=== PATIENT | male | born 1965 | race Caucasian/White ===

== ENCOUNTER 2018-11-24 17:16 | Inpatient (IN) | payer OTHER ==
[~2018-11-24] VITALS: Ht 182.9 cm; Wt 80.7 kg
--- NOTE | 2018-11-24 22:27 | NUR ---
REPORT RECEIVED FROM [facility].
--- NOTE | 2018-11-24 23:10 | NUR ---
RECEIVED PATIENT VIA GURNEY IN STABLE CONDITION. PATIENT AWAKE, A/O X4 AND ABLE TO PROVIDE HISTORY AND INFORMATION BY SELF. NO C/O PAIN OR DISCOMFORT. PERIPHERAL LINE INTACT AND PATENT. PATIENT NOTED WITH X1 MODERATE AMOUNT LIQUID BLACK STOOL. NOTED WITH UNSTEADY GAIT AND AMBULATES TO RESTROOM WITH MIN ASSIST. VITALS WNL. PATIENT SEEN AND EXAMINED BY YURI MACIAS. ALL MEDS GIVEN ORDERED. ENCOURAGED USE OF CALL LIGHT FOR ASSISTANCE. ROOM FREE OF CLUTTER AND BELONGINGS KEPT NEAR BEDSIDE.
[2018-11-25] MEDS ORDERED: Z GUARD REMEDY 2 OZ OINT TP PRN
[2018-11-25] MEDS ORDERED: ACETAMINOPHEN 325 MG TABLET PO PRN
[2018-11-25] MEDS ORDERED: MAGNESIUM HYDROXIDE 30 ML UDC PO PRN
[2018-11-25] MEDS ORDERED: ZOLPIDEM TARTRATE 5 MG TABLET PO PRN
[2018-11-25] MEDS ORDERED: HYDROCODONE/APAP 5/325MG 1 EACH TABLET PO PRN
[2018-11-25] MEDS: PANTOPRAZOLE 40 MG VIAL IV SCH ×2 (00:32→11:36)
[2018-11-25] MEDS: IV NS 0.9% 1,000 ML IV PRN ×2 (00:32→16:05)
[2018-11-25] MEDS: LORAZEPAM INJ 2 MG/ML VIAL IV PRN ×5 (00:32→21:21)
--- NOTE | 2018-11-25 07:27 | NUR ---
MS RN NOTES PATIENT ASLEEP IN BED WITH NO DISTRESS NOTED. CALL LIGHT WITHIN REACH. PERIPHERAL LINE INTACT AND PATENT. NO C/O PAIN OR DISCOMFORT. ALL BELONGINGS KEPT NEAR BEDSIDE. WILL ENDORSE TO ONCOMING SHIFT.
--- NOTE | 2018-11-25 07:30 | NUR ---
MS/RN Patient received Patient received from slot shift manager, A/O X4, Persian speaking only. Denies any pain or discomfort at this time. Vital signs in normal range, no fever. Patient instructed if using restroom for bowel movement to not flush the toilet so that stool could be observed for any signs of blood. All needs attended, call light within reach, will continue to monitor and ensure safety. 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
[2018-11-25 07:51] VITALS: BP 127/84
[2018-11-25 07:51] LABS: BASOPHILS % (AUTO) 0.7 % (0.0-2.0); EOSINOPHILS % (AUTO) 0.7 % (0.0-6.0); HEMATOCRIT 37 % (39-51); LYMPHOCYTES # (AUTO) 1.1 /CMM (0.8-4.8); LYMPHOCYTES % (AUTO) 22.3 % (20.0-44.0); MEAN CORPUSCULAR HGB CONC 35 g/dl (31.0-36.0); MEAN CORPUSCULAR VOLUME 91 fL (80-96); MONOCYTES # (AUTO) 0.3 /CMM (0.1-1.30); MONOCYTES % (AUTO) 6.8 % (2.0-12.0); NEUTROPHILS # (AUTO) 3.4 /CMM (1.8-8.9); NEUTROPHILS % (AUTO) 69.5 % (43.0-81.0); PLATELET COUNT (AUTO) 62 /CMM (150-450); RED BLOOD CELL COUNT(AUTO) 4.02 MIL/uL (4.5-6.0); WHITE BLOOD COUNT (AUTO) 4.9 K/uL (4.3-11.0)
[2018-11-25 08:00] VITALS: BP 127/84
[2018-11-25] MEDS: ONDANSETRON HCL/PF 4 MG/2 ML VIAL IVP PRN ×2 (08:00→17:16)
--- NOTE | 2018-11-25 08:00 | NUR ---
MS/RN Nausea Patient complaining of nausea, zofran 4mg IVP administered with ativan 2mg for alcohol withdrawal. Will monitor effectiveness.
[2018-11-25 08:07] LABS: CALCIUM, SERUM 6.8 mg/dL (8.5-10.1); CREATININE 0.7 mg/dL (0.6-1.3); MAGNESIUM 1.7 mg/dL (1.8-2.4); PHOSPHORUS 2.5 mg/dL (2.5-4.9); POTASSIUM 3.7 mmol/L (3.5-5.1)
[2018-11-25] MEDS ORDERED: ACET-868 PO (09:23)
[2018-11-25 09:48] LABS: BAND % (MANUAL) 1 % (0.0-5.0); LYMPHOCYTES % (MANUAL) 24 % (16-48); MONOCYTES % (MANUAL) 6 % (0-11.0); NEUTROPHILS % (MANUAL) 69 (42-76)
[2018-11-25 10:09] LABS: ALBUMIN 3.2 g/dL (3.4-5.0); BILIRUBIN,DIRECT 0.2 mg/dL (0.0-0.2); BILIRUBIN,TOTAL 1.3 mg/dL (0.2-1.0); TOTAL PROTEIN, SERUM 6.7 g/dL (6.4-8.2)
--- NOTE | 2018-11-25 10:12 | NUR ---
MS/RN S/N [place] Aaron RETINA SUBSPECIALIST Seen by RETINA SUBSPECIALIST - ativan frequency changed from every six hours to every four hours prn. Continue to trend H&H, and observe for any bleeding. Await GI consult.
[2018-11-25] MEDS: Magnesium 1GM/D5W 100ML PREMIX 100 ML IV SCH ×2 (10:18→10:48)
--- NOTE | 2018-11-25 14:32 | NUR ---
MS/RN Ativan Ativan 2mg administered for alcohol withdrawal.
[2018-11-25 15:51] VITALS: BP 136/77
[2018-11-25 16:00] VITALS: BP 136/77
[2018-11-25] MEDS ORDERED: NA PHOS,M-B/NA PHOS,DI-BA 1 EA ENEMA RC PRN (17:30)
[2018-11-25] MEDS ORDERED: MAGNESIUM CITRATE 296 ML BOTTLE PO ONE (17:30)
[2018-11-25] MEDS ORDERED: PEG 3350/NA SULF,BICARB,CL/KCL 4,000 ML BOTTLE PO ONE (18:00)
--- NOTE | 2018-11-25 18:15 | NUR ---
MS/RN S/B GI Seen by GI - patient to be scheduled for EGD/colonoscopy on Tuesday. Consent forms signed and placed in front of chart. Bowel prep to be started tomorrow.
[2018-11-25] MEDS: SUCRALFATE 1 G TABLET PO SCH ×2 (18:22→21:04)
[2018-11-25 18:25] LABS: BASOPHILS # (AUTO) 0.1 /CMM (0.0-0.2); BASOPHILS % (AUTO) 0.8 % (0.0-2.0); EOSINOPHILS % (AUTO) 0.9 % (0.0-6.0); HEMATOCRIT 37 % (39-51); HEMOGLOBIN 13.2 g/dL (13.5-17.5); LYMPHOCYTES # (AUTO) 1.2 /CMM (0.8-4.8); LYMPHOCYTES % (AUTO) 15.2 % (20.0-44.0); MEAN CORPUSCULAR HGB CONC 36 g/dl (31.0-36.0); MEAN CORPUSCULAR VOLUME 92 fL (80-96); MONOCYTES # (AUTO) 0.5 /CMM (0.1-1.30); NEUTROPHILS # (AUTO) 5.9 /CMM (1.8-8.9); NEUTROPHILS % (AUTO) 77.1 % (43.0-81.0); PLATELET COUNT (AUTO) 63 /CMM (150-450); RED BLOOD CELL COUNT(AUTO) 4.04 MIL/uL (4.5-6.0); WHITE BLOOD COUNT (AUTO) 7.7 K/uL (4.3-11.0)
--- NOTE | 2018-11-25 18:31 | NUR ---
MS/RN End note Patient remains in stable condition, no evidence of any bleeding. IV fluids infusing at 75ml/hr, no signs of any infiltration seen. Call light within reach, will continue to monitor and ensure safety.
[2018-11-25 18:50] LABS: ALBUMIN 3.3 g/dL (3.4-5.0); BILIRUBIN,DIRECT 0.4 mg/dL (0.0-0.2); TOTAL PROTEIN, SERUM 6.8 g/dL (6.4-8.2)
--- NOTE | 2018-11-25 19:00 | NUR ---
RN MS OPENING NOTES RECEIVED PATIENT IN BED AWAKE ALERT AND ORIENTED X4, ABLE TO MAKE NEEDS KNOWN, RESPIRATIONS EVEN AND UNLABORED WITH EQUAL RISE AND FALL OF CHEST, DENIES ANY PAIN OR DISCOMFORT AT THIS TIME, IV SITE TO RIGHT AC #20G INTACT AND PATENT, NO REDNESS, NO INFILTRATION PRESENT, IVF RUNNING ORDERED, SAFETY PRECAUTIONS IN PLACE, LOW BED AND LOCKED, ORIENTED TO STAFF AND CALL LIGHT AND KEPT WITHIN REACH, REMAINS COMFORTABLE AT THIS TIME, FLUIDS AND TOILETING OFFERED, ALL NEEDS ATTENDED AT THIS TIME, WILL CONTINUE TO MONITOR AND ATTEND TO NEEDS.
[2018-11-25 20:00] VITALS: BP 152/78
--- NOTE | 2018-11-25 21:21 | NUR ---
RN MS NOTES PATIENT REQUESTING FOR ATIVAN STATES " IT MAKES ME FEEL CALMER AND BETTER" ATIVAN PRN GIVEN ORDERED, WILL MONITOR FOR EFFECTIVENESS.
[2018-11-26] MEDS: PANTOPRAZOLE 40 MG VIAL IV SCH ×3 (00:36→23:09)
[2018-11-26] MEDS: IV NS 0.9% 1,000 ML IV PRN ×2 (04:31→23:09)
--- NOTE | 2018-11-26 06:33 | NUR ---
RN MS CLOSING NOTES RECEIVED PATIENT IN BED AWAKE ALERT AND ORIENTED X4, ABLE TO MAKE NEEDS KNOWN, RESPIRATIONS EVEN AND UNLABORED WITH EQUAL RISE AND FALL OF CHEST, DENIES ANY PAIN OR DISCOMFORT AT THIS TIME, IV SITE TO RIGHT AC #20G INTACT AND PATENT, NO REDNESS, NO INFILTRATION PRESENT, IVF RUNNING ORDERED, SAFETY PRECAUTIONS IN PLACE, LOW BED AND LOCKED, CALL LIGHT KEPT WITHIN REACH, REMAINS COMFORTABLE AT THIS TIME, FLUIDS AND TOILETING OFFERED, ALL NEEDS ATTENDED AT THIS TIME, WILL CONTINUE TO MONITOR AND ATTEND TO NEEDS AND ENDORSE TO NEXT SHIFT.
[2018-11-26 07:10] LABS: BASOPHILS % (AUTO) 0.5 % (0.0-2.0); HEMATOCRIT 36 % (39-51); HEMOGLOBIN 12.8 g/dL (13.5-17.5); LYMPHOCYTES % (AUTO) 15.3 % (20.0-44.0); MEAN CORPUSCULAR HGB CONC 36 g/dl (31.0-36.0); MEAN CORPUSCULAR VOLUME 91 fL (80-96); MONOCYTES # (AUTO) 0.4 /CMM (0.1-1.30); MONOCYTES % (AUTO) 5.8 % (2.0-12.0); NEUTROPHILS # (AUTO) 5.1 /CMM (1.8-8.9); NEUTROPHILS % (AUTO) 76.4 % (43.0-81.0); PLATELET COUNT (AUTO) 56 /CMM (150-450); RED BLOOD CELL COUNT(AUTO) 3.92 MIL/uL (4.5-6.0); WHITE BLOOD COUNT (AUTO) 6.6 K/uL (4.3-11.0)
[2018-11-26 07:11] LABS: CALCIUM, SERUM 7.2 mg/dL (8.5-10.1); CREATININE 0.7 mg/dL (0.6-1.3); POTASSIUM 3.1 mmol/L (3.5-5.1)
--- NOTE | 2018-11-26 07:12 | NUR ---
MS RN OPENING NOTES RECEIVED PATIENT AWAKE IN BED IN NO ACUTE SIGNS OF DISTRESS. A/O X4. ABLE TO MAKE NEEDS KNOWN, DENIES PAIN OR DISCOMFORTS AT THIS TIME. ON ROOM AIR, RESPIRATIONS EVEN AND UNLABORED. IV ACCESS ON RAC #20G INTACT AND PATENT, IVF OF NS @75ML/HR INFUSING WELL, NO S/S OF INFILTRATIONS NOTED. SAFETY MEASURES IN PLACE. BED IN LOW LOCKED POSITION WITH SR UP X2. CALL LIGHT WITHIN REACH. WILL CONTINUE TO MONITOR AND ATTEND TO NEEDS.
[2018-11-26] MEDS: SUCRALFATE 1 G TABLET PO SCH ×4 (07:34→21:04)
[2018-11-26 08:07] VITALS: BP 129/75
[2018-11-26 09:10] LABS: EOSINOPHILS % (MANUAL) 1 % (0-4); LYMPHOCYTES % (MANUAL) 17 % (16-48); MONOCYTES % (MANUAL) 1 % (0-11.0); NEUTROPHILS % (MANUAL) 81 (42-76)
[2018-11-26] MEDS: LORAZEPAM INJ 2 MG/ML VIAL IV PRN ×2 (09:31→23:09)
--- NOTE | 2018-11-26 09:37 | NUR ---
RN NOTES PT SEEN AND EVALUATED BY GILBERTO CHAVEZ. PT NOTED ANXIOUS, PRN ATIVAN 2MG IVP ADMINISTERED @0931. PT ALSO NOTED WITH LOW LEVEL POTASSIUM 3.1, GILBERTO CHAVEZ ORDERED TO GIVE KDUR 20MEQ X 2 DOSES. WILL CONTINUE TO MONITOR.
[2018-11-26] MEDS: POTASSIUM CHLORIDE 20 MEQ TAB.PRT.SR PO SCH ×2 (09:43→10:50)
--- NOTE | 2018-11-26 15:49 | NUR ---
RN NOTES PATIENT DID BOWEL MOVEMENT X1, DARK BROWN SOFT CONSISTENCY. SPECIMEN COLLECTED FOR OCCULT BLOOD AND CALL LAB FOR PICK-UP.
[2018-11-26 16:00] VITALS: BP 120/76
[2018-11-26 17:29] LABS: OCCULT BLOOD STOOL NEGATIVE (NEGATIVE)
[2018-11-26] MEDS ORDERED: MAGNESIUM CITRATE 296 ML BOTTLE PO ONE (18:30)
--- NOTE | 2018-11-26 18:33 | NUR ---
MS RN CLOSING NOTES PATIENT IN BED AWAKE AND RESTING AT MODERATE HIGH BACKREST POSITION. A/O X4. ABLE TO MAKE NEEDS KNOWN. ON ROOM AIR, RESPIRATIONS EVEN AND UNLABORED. PT FOR COLONOSCOPY AND EGD TOMORROW. NPO POST MIDNIGHT WILL BE ENFORCED AND PT IS AWARE. IV ACCESS ON RAC G#20 INTACT AND PATENT, IVF OF NS @75ML/HR INFUSING WELL, NO S/S OF INFILTRATIONS NOTED. SAFETY MEASURES IN PLACE. BED IN LOW LOCKED POSITION WITH SR UP X2. CALL LIGHT WITHIN REACH. ALL NEEDS AND CARE ATTENDED WELL. WILL ENDORSE TO BASKET OPERATOR NURSE FOR KATHY.
--- NOTE | 2018-11-26 19:00 | NUR ---
MS RN NOTES RECEIVED PT IN BED AWAKE AND ABLE TO MAKE NEEDS KNOWN. A/O X4. PT DENIES ANY PAIN AT THIS TIME. RESPIRATIONS EVEN AND UNLABORED WITH NO S/S OF ACUTE DISTRESS OR SOB NOTED. IV ACCESS ON RAC #20G INTACT AND PATENT, IVF OF NS @75ML/HR INFUSING WELL, NO S/S OF INFILTRATIONS NOTED. SAFETY MEASURES IN PLACE WITH BED IN LOW LOCKED POSITION WITH SIDE RAILS UP X2. CALL LIGHT WITHIN REACH. WILL CONTINUE TO MONITOR.
[2018-11-26 20:00] VITALS: BP 140/84
[2018-11-27] VITALS (10 sets, daily range): BP systolic 118–137; BP diastolic 72–82
--- NOTE | 2018-11-27 06:50 | NUR ---
MS RN NOTES PT IN BED AWAKE AND ABLE TO MAKE NEEDS KNOWN. PT A/O X4. PT DENIES ANY PAIN THROUGHOUT SHIFT. RESPIRATIONS EVEN AND UNLABORED WITH NO S/S OF ACUTE DISTRESS OR SOB NOTED THROUGHOUT SHIFT. IV ACCESS ON RFA #20G INTACT AND PATENT, RUNNING NS @75ML/HR INFUSING WELL, NO S/S OF INFILTRATIONS NOTED. SAFETY MEASURES IN PLACE WITH BED IN LOW LOCKED POSITION WITH SIDE RAILS UP X2. PT NPO SINCE MIDNIGHT IN PREP FOR COLONOSCOPY AND EGD. CALL LIGHT WITHIN REACH. WILL ENDORSE TO ONCOMING NURSE FOR KATHY.
--- NOTE | 2018-11-27 07:10 | NUR ---
MS RN OPENING NOTES PATIENT RECEIVED AWAKE IN BED IN NO ACUTE SIGNS OF DISTRESS. A/O X4. LIBYAN SPEAKING, DENIES PAIN OR DISCOMFORTS AT THIS TIME. ON ROOM AIR, RESPIRATIONS EVEN AND UNLABORED. PT FOR EGD AND COLONOSCOPY TODAY, NPO MAINTAINED. IV ACCESS ON RAC #20G INTACT AND PATENT, IVF OF NS RUNNING @75ML/HR, NO S/S OF INFILTRATIONS NOTED. SAFETY MEASURES IN PLACE. BED IN LOW LOCKED POSITION WITH SR UP X2. CALL LIGHT WITHIN REACH. WILL CONTINUE TO MONITOR AND ATTEND TO NEEDS.
[2018-11-27] MEDS: SUCRALFATE 1 G TABLET PO SCH ×4 (07:28→21:17)
[2018-11-27] MEDS: LORAZEPAM INJ 2 MG/ML VIAL IV PRN ×3 (08:34→21:21)
--- NOTE | 2018-11-27 08:39 | NUR ---
RN NOTES PATIENT NOTED RESTLESS, ANXIOUS AND ASKING SEVERAL TIMES IF HE CAN GO HOME NOW. INFORMED HIM THAT HE WILL HAVE EGD AND COLONOSCOPY PROCEDURES TODAY, HE VERBALIZED UNDERSTANDING. PRN ATIVAN 2MG /1ML IVP ADMINISTERED @ 0834. WILL CONTINUE TO MONITOR PT.
[2018-11-27 09:04] LABS: BASOPHILS % (AUTO) 0.4 % (0.0-2.0); EOSINOPHILS % (AUTO) 1.3 % (0.0-6.0); HEMATOCRIT 37 % (39-51); LYMPHOCYTES # (AUTO) 1.1 /CMM (0.8-4.8); LYMPHOCYTES % (AUTO) 18.4 % (20.0-44.0); MEAN CORPUSCULAR HGB CONC 36 g/dl (31.0-36.0); MEAN CORPUSCULAR VOLUME 92 fL (80-96); MONOCYTES # (AUTO) 0.5 /CMM (0.1-1.30); MONOCYTES % (AUTO) 7.7 % (2.0-12.0); NEUTROPHILS # (AUTO) 4.2 /CMM (1.8-8.9); NEUTROPHILS % (AUTO) 72.2 % (43.0-81.0); PLATELET COUNT (AUTO) 62 /CMM (150-450); RED BLOOD CELL COUNT(AUTO) 3.98 MIL/uL (4.5-6.0); WHITE BLOOD COUNT (AUTO) 5.8 K/uL (4.3-11.0)
[2018-11-27 09:27] LABS: ALBUMIN 3.3 g/dL (3.4-5.0); BILIRUBIN,DIRECT 0.3 mg/dL (0.0-0.2); BILIRUBIN,TOTAL 1.4 mg/dL (0.2-1.0); CALCIUM, SERUM 7.7 mg/dL (8.5-10.1); CREATININE 0.6 mg/dL (0.6-1.3); POTASSIUM 3.1 mmol/L (3.5-5.1); TOTAL PROTEIN, SERUM 6.9 g/dL (6.4-8.2)
[2018-11-27] MEDS ORDERED: POTASSIUM CHLORIDE 20 MEQ TAB.PRT.SR PO ONE (10:00)
--- NOTE | 2018-11-27 10:17 | NUR ---
RN NOTES PATIENT TRANSPORTED TO SURGERY VIA HIS BED FOR COLONOSCOPY AND EGD PROCEDURES. ALL CONSENTS SIGNED AND CHECKLIST DONE.
--- NOTE | 2018-11-27 10:33 | NUR ---
Social service consult requested by GILBERTO Caban for substance abuse and mental health. Pt. is a 53 year old male who was admitted to [facility] for GI Bleed. SW attempted to meet with pt. bedside, however pt. had gone for a colonoscopy and EGD procedure. SW to meet with pt. when he is back from his procedure.
[2018-11-27] MEDS ORDERED: FENTANYL PF 100MCG/2ML AMPUL ONE (11:46)
--- NOTE | 2018-11-27 12:11 | NUR ---
WOUND CARE: PT OFF UNIT AT THIS TIME. WILL SEE PRN.
[2018-11-27] MEDS: PANTOPRAZOLE 40 MG VIAL IV SCH (13:10)
--- NOTE | 2018-11-27 13:16 | NUR ---
RN NOTES PATIENT RETURNED TO UNIT AT 1300 S/P COLONOSCOPY AND EGD BY DR MEJIA. AWAKE, A/O X3 AND IN NO ACUTE SIGNS OF DISTRESS. ABLE TO MAKE NEEDS KNOWN, NO C/O PAIN VOICED AT THIS TIME. V/S CHECKED , STABLE AND RECORDED. IVF OF NS AT 75ML/HR RESUMED. WILL CONTINUE TO MONITOR PT ACCORDINGLY.
--- NOTE | 2018-11-27 14:53 | NUR ---
RN NOTES PATIENT WITH LOW LEVEL POTASSIUM 3.1 TODAY, REPLACED WITH KDUR 60MEQ PER ORDERED. WILL CONTINUE TO MONITOR.
--- NOTE | 2018-11-27 15:27 | NUR ---
RN NOTES PATIENT NOTED RESTLESS AND ANXIOUS. PRN ATIVAN 2MG/1ML IVP ADMINISTERED AT 1522. WILL CONTINUE TO MONITOR PT'S STATUS.
[2018-11-27] MEDS: IV NS 0.9% 1,000 ML IV PRN (16:32)
--- NOTE | 2018-11-27 18:41 | NUR ---
MS RN CLOSING NOTES PATIENT AWAKE AND SITTING AT SIDE OF BED TALKING TO HIS ROOMMATE. A/O X4. ABLE TO MAKE NEEDS KNOWN. SEEN BY SECURITY AGENT [place] FEW MINUTES AGO WITH ORDER TO ADVANCE DIET TOLERATED. PT ON ROOM AIR, RESPIRATION EVEN WITH NO ACUTE DISTRESS NOTED THROUGHOUT THE DAY. IV ACCESS ON RFA G#22 INTACT AND PATENT, IVF OF NS @75ML/HR INFUSING WELL, NO S/S OF INFILTRATIONS NOTED. SAFETY MEASURES IN PLACE. BED IN LOW LOCKED POSITION WITH SR UP X2. CALL LIGHT WITHIN REACH. ALL NEEDS AND CARE ATTENDED WELL. WILL ENDORSE TO POACHER OPERATOR NURSE FOR KATHY.
--- NOTE | 2018-11-27 19:28 | NUR ---
RN MS OPENING NOTES RECEIVED PT WALKING AROUND IN ROOM, ALERT ORIENTEDX4, BREATHING EVEN AND UNLABORED ON ROOM AIR, NO SOB NOTED. NO COMPLAINT OF PAIN, PT IS ASKING TO GO HOME, SAYS TOLD HIM HE COULD GO HOME, WILL REEDUCATED ON DR INSTRUCTIONS. IV ACCESS ON THE R FA 20G, REFUSING FLUIDS AT THE MOMENT. BED IN LOWEST LOCKED POSITION, CALL LIGHT WITHIN REACH AT ALL TIMES. WILL CONTINUE TO MONITOR FREQUENTLY
[2018-11-27] MEDS: ONDANSETRON HCL/PF 4 MG/2 ML VIAL IVP PRN (21:17)
[2018-11-28] MEDS: PANTOPRAZOLE 40 MG VIAL IV SCH (00:12)
--- NOTE | 2018-11-28 06:18 | NUR ---
RN MS CLOSING NOTES PT REMAINS SITTING UP IN CHAIR, ALERT ORIENTEDX4, BREATHING EVEN AND UNLABORED ON ROOM AIR, NO SOB NOTED. NO COMPLAINT OF PAIN OR DISCOMFORT AT THIS TIME, IV ACCESS ON THE R FA 20G, HAD IV FLUIDS MOST OF THE NIGHT, ASKED TO BE DISCONNECTED FOR A WHILE. BED IN LOWEST LOCKED POSITION, CALL LIGHT WITHIN REACH AT ALL TIMES. WILL ENDORSE TO DAY NURSE FOR KATHY
[2018-11-28] MEDS: SUCRALFATE 1 G TABLET PO SCH (06:43)
[2018-11-28] MEDS: LORAZEPAM INJ 2 MG/ML VIAL IV PRN (06:44)
--- NOTE | 2018-11-28 07:45 | NUR ---
MS RN RECEIVED ON BED, AWAKE,ALERT,ORIENTED X4,NOT IN ANY FORM OF DISTRESS, RESPIRATIONS EVEN AND UNLABORED,NO SOB NOTED. DENIES PAIN AT THIS TIME, WILL MONITOR PATIENT.
[2018-11-28 07:53] LABS: BASOPHILS % (AUTO) 0.2 % (0.0-2.0); EOSINOPHILS % (AUTO) 0.8 % (0.0-6.0); HEMATOCRIT 34 % (39-51); HEMOGLOBIN 12.1 g/dL (13.5-17.5); LYMPHOCYTES % (AUTO) 15.4 % (20.0-44.0); MEAN CORPUSCULAR HGB CONC 35 g/dl (31.0-36.0); MEAN CORPUSCULAR VOLUME 93 fL (80-96); MONOCYTES # (AUTO) 0.5 /CMM (0.1-1.30); MONOCYTES % (AUTO) 7.2 % (2.0-12.0); NEUTROPHILS # (AUTO) 5.1 /CMM (1.8-8.9); NEUTROPHILS % (AUTO) 76.4 % (43.0-81.0); PLATELET COUNT (AUTO) 72 /CMM (150-450); WHITE BLOOD COUNT (AUTO) 6.6 K/uL (4.3-11.0)
[2018-11-28 08:07] LABS: CALCIUM, SERUM 8.1 mg/dL (8.5-10.1); CREATININE 0.5 mg/dL (0.6-1.3); POTASSIUM 3.5 mmol/L (3.5-5.1)
--- NOTE | 2018-11-28 08:10 | NUR ---
MS RN JUST ATE BREAKFAST, PATIENT WANTS TO GO AMA, EXPLAINED RISK AND BENEFITS, STILL WANT TO GO.
--- NOTE | 2018-11-28 08:15 | NUR ---
MS RN PATIENT WENT AMA, PAPER SIGNED,CN NOTIFIED, REMOVED IV HEPLOCK.
--- NOTE | 2018-11-28 10:39 | NUR ---
SW was informed by Med Surg 3 L[address] Frye that pt. left AMA this morning.
[2018-11-28 13:03] LABS: LYMPHOCYTES % (MANUAL) 18 % (16-48); MONOCYTES % (MANUAL) 4 % (0-11.0); NEUTROPHILS % (MANUAL) 78 (42-76)
== END 2018-11-28 08:10 | disposition left against medical advice (07) | DRG 241 ==
LOC: MED 23:48 → MEDSG2 11-25 00:11 → MED 11-26 16:14
PROVIDERS: ADMIT Nurse Practitioner Acute Care; ATTEND Nurse Practitioner Acute Care
PROC: 0DB98ZX Excision of Duodenum, Via Natural or Artificial Opening Endoscopic, Diagnostic (ICD-10-PCS; principal; 2018-11-27)
PROC: 0DBP8ZX Excision of Rectum, Via Natural or Artificial Opening Endoscopic, Diagnostic (ICD-10-PCS; principal; 2018-11-27)
PROC: 0DB78ZX Excision of Stomach, Pylorus, Via Natural or Artificial Opening Endoscopic, Diagnostic (ICD-10-PCS; principal; 2018-11-27)
PROC: 0DBM8ZX Excision of Descending Colon, Via Natural or Artificial Opening Endoscopic, Diagnostic (ICD-10-PCS; principal; 2018-11-27)
DX: K29.01 Acute gastritis with bleeding (principal); I85.11 Secondary esophageal varices with bleeding; D69.59 Other secondary thrombocytopenia; E44.1 Mild protein-calorie malnutrition; E83.42 Hypomagnesemia; G31.2 Degeneration of nervous system due to alcohol; D62 Acute posthemorrhagic anemia; E88.09 Other disorders of plasma-protein metabolism, not elsewhere classified; K70.9 Alcoholic liver disease, unspecified; K70.0 Alcoholic fatty liver; F10.229 Alcohol dependence with intoxication, unspecified; E87.6 Hypokalemia; R74.0 Nonspecific elevation of levels of transaminase and lactic acid dehydrogenase [LDH]; E80.6 Other disorders of bilirubin metabolism; F41.9 Anxiety disorder, unspecified; F10.239 Alcohol dependence with withdrawal, unspecified; Z68.24 Body mass index [BMI] 24.0-24.9, adult; F17.210 Nicotine dependence, cigarettes, uncomplicated; K44.9 Diaphragmatic hernia without obstruction or gangrene; K29.81 Duodenitis with bleeding; K62.89 Other specified diseases of anus and rectum; K64.4 Residual hemorrhoidal skin tags; K64.8 Other hemorrhoids
CPT/HCPCS: 36415; 76700-TC; 80048-TC; 80061-TC; 80074; 80076-TC; 82105; 82272-TC; 82728-TC; 83540-TC; 83690-TC; 83735-TC; 84100-TC; 85025-TC; 85610-TC; 87081-TC; 88305-TC; 88313-TC; 88342; C9113; G0378; J2060; J2405; J2704; J3010; J3475; J7030